=== PATIENT | female | born 1995 | race Hispanic/Latino ===

== ENCOUNTER 2017-09-16 08:47 | Emergency (ER) | payer MEDICAID, OTHER ==
[~2017-09-16 08:47] MED LIST: PANT40TA25 PO; TRAM50TA4 PO
[2017-09-16 09:39] LABS: BASOPHILS % (AUTO) 0.9 % (0.0-5.0); BILIRUBIN,URINE Negative (NEGATIVE); EOSINOPHILS % (AUTO) 10.1 % (0.0-8.0); GLUCOSE, URINE (UA) Negative (NEGATIVE); HEMATOCRIT 41.3 % (36-48); KETONES,URINE 15 mg/dL (NEGATIVE); LEUKOCYTE ESTERASE ,URINE Trace (NEGATIVE); LYMPHOCYTES % (AUTO) 30.3 % (21.0-51.0); MEAN CORPUSCULAR HEMOGLOBIN 29.9 pg (27.0-33.0); MEAN CORPUSCULAR HGB CONC 34.3 g/dL (32.0-36.0); MEAN CORPUSCULAR VOLUME 87.1 fL (80-100); NEUTROPHILS % (AUTO) 52.7 % (40.0-77.0); NITRATE,URINE Negative (NEGATIVE); OCCULT BLOOD,URINE Negative (NEGATIVE); PLATELET COUNT (AUTO) 231 K/uL (130-400); PROTEIN,URINE Negative (NEGATIVE); RED BLOOD CELL COUNT(AUTO) 4.74 MIL/uL (4.00-5.50); RED CELL DISTRIBUTION WIDTH 14.1 % (11.0-15.5); WHITE BLOOD COUNT (AUTO) 5.8 K/uL (4.8-10.8)
[2017-09-16 09:41] LABS: APPEARANCE,URINE CLEAR (CLEAR); COLOR,URINE YELLOW (YELLOW)
[2017-09-16 09:46] LABS: AMPHET/METH SCREEN,URINE NEGATIVE (NEGATIVE); BARBITURATE SCREEN, URINE NEGATIVE (NEGATIVE); BENZODIAZEPINES SCREEN,URINE POSITIVE (NEGATIVE); CANNABINOID SCREEN,URINE POSITIVE (NEGATIVE); COCAINE SCREEN,URINE NEGATIVE (NEGATIVE); OPIATE SCREEN,URINE NEGATIVE (NEGATIVE); PHENCYCLIDINE SCREEN,URINE NEGATIVE (NEGATIVE)
[2017-09-16 09:47] LABS: CREATININE 0.8 mg/dL (0.5-1.5); POTASSIUM 3.7 mmol/L (3.5-5.1)
[2017-09-16] MEDS ORDERED: MORPHINE SULFATE 4 MG/1ML SYG ONE (09:48)
[2017-09-16 09:52] LABS: ALBUMIN 4.1 g/dL (3.5-5.0); BILIRUBIN,TOTAL 1.1 mg/dL (0.2-1.0); TOTAL PROTEIN, SERUM 7.3 g/dL (6.0-8.3)
[2017-09-16 09:58] LABS: BACTERIA,URINE Many /HPF (None Seen); MUCUS,URINE Many LPF (None Seen); RBC,URINE None Seen /HPF (0-1); WBC,URINE 0-1 /HPF (0-1)
== END 2017-09-16 10:33 | disposition home or self-care (01) ==
LOC: EDH 08:47
DX: R10.13 Epigastric pain (principal); G89.29 Other chronic pain; Z90.49 Acquired absence of other specified parts of digestive tract; Z88.6 Allergy status to analgesic agent
CPT/HCPCS: 36415; 76705; 80053; 80305; 81001; 85025; 96374; 99285; J2270

== ENCOUNTER 2018-03-20 15:51 | Emergency (ER) | payer OTHER ==
[2018-03-20 16:25] LABS: BASOPHILS % (AUTO) 0.8 % (0.0-5.0); EOSINOPHILS % (AUTO) 5.2 % (0.0-8.0); HEMATOCRIT 44.6 % (36-48); LYMPHOCYTES % (AUTO) 38.6 % (21.0-51.0); MEAN CORPUSCULAR HEMOGLOBIN 29.4 pg (27.0-33.0); MEAN CORPUSCULAR HGB CONC 32.8 g/dL (32.0-36.0); MEAN CORPUSCULAR VOLUME 89.4 fL (80-100); MONOCYTES % (AUTO) 6.2 % (3.0-13.0); NEUTROPHILS % (AUTO) 49.2 % (40.0-77.0); PLATELET COUNT (AUTO) 258 K/uL (130-400); RED BLOOD CELL COUNT(AUTO) 4.99 MIL/uL (4.00-5.50); RED CELL DISTRIBUTION WIDTH 15.5 % (11.0-15.5); WHITE BLOOD COUNT (AUTO) 5.7 K/uL (4.8-10.8)
[2018-03-20] MEDS ORDERED: ONDANSETRON HCL 4 MG/2 ML VIAL ONE (16:27)
[2018-03-20 16:38] LABS: APPEARANCE,URINE SL CLOUDY (CLEAR); BILIRUBIN,URINE NEGATIVE (NEGATIVE); COLOR,URINE YELLOW (YELLOW); GLUCOSE, URINE (UA) NEGATIVE (NEGATIVE); KETONES,URINE NEGATIVE (NEGATIVE); LEUKOCYTE ESTERASE ,URINE NEGATIVE (NEGATIVE); NITRATE,URINE NEGATIVE (NEGATIVE); OCCULT BLOOD,URINE LARGE (NEGATIVE); PROTEIN,URINE 30 (NEGATIVE); UROBILINOGEN,URINE 0.2 mg/dL (0.2-1.0)
[2018-03-20 16:41] LABS: CREATININE 0.8 mg/dL (0.5-1.5); HCG,QUAL RESULT NEGATIVE (NEGATIVE); POTASSIUM 3.7 mmol/L (3.5-5.1)
[2018-03-20 16:44] LABS: ALBUMIN 4.2 g/dL (3.5-5.0); BILIRUBIN,TOTAL 0.7 mg/dL (0.2-1.0); TOTAL PROTEIN, SERUM 7.5 g/dL (6.0-8.3)
[2018-03-20 16:47] LABS: AMPHET/METH SCREEN,URINE NEGATIVE (NEGATIVE); BARBITURATE SCREEN, URINE NEGATIVE (NEGATIVE); BENZODIAZEPINES SCREEN,URINE POSITIVE (NEGATIVE); CANNABINOID SCREEN,URINE POSITIVE (NEGATIVE); COCAINE SCREEN,URINE NEGATIVE (NEGATIVE); OPIATE SCREEN,URINE POSITIVE (NEGATIVE); PHENCYCLIDINE SCREEN,URINE NEGATIVE (NEGATIVE)
[2018-03-20 16:51] LABS: BACTERIA,URINE Few /HPF (None Seen); WBC,URINE 0-1 /HPF (0-1)
[2018-03-20 16:52] LABS: SQUAMOUS EPITHELIAL CELL,UR Moderate /HPF (0-2)
[2018-03-20] MEDS ORDERED: DICYCLOMINE HCL 20 MG TAB ONE (16:58)
[2018-03-20] MEDS ORDERED: LIDOCAINE HCL 2% VISCOUS 15 ML UDCUP ONE (16:58)
[2018-03-20] MEDS ORDERED: MAG HYDROX/AL HYDROX/SIMETH ES 30 ML SUSP UDCUP ONE (16:58)
== END 2018-03-20 17:44 | disposition home or self-care (01) ==
LOC: EDH 15:51
DX: G89.29 Other chronic pain (principal); R10.13 Epigastric pain; F11.10 Opioid abuse, uncomplicated; Z76.5 Malingerer [conscious simulation]; Z88.6 Allergy status to analgesic agent
CPT/HCPCS: 36415; 80053; 80305; 81001; 81025; 83690; 85025; 96374; 99284; J2405

== ENCOUNTER 2018-05-26 10:26 | Emergency (ER) | payer MEDICAID, OTHER ==
[2018-05-26] MEDS ORDERED: MAG HYDROX/AL HYDROX/SIMETH ES 30 ML SUSP UDCUP ONE ×2 (11:07→17:37)
[2018-05-26] MEDS ORDERED: LIDOCAINE HCL 2% VISCOUS 15 ML UDCUP ONE (17:37)
== END 2018-05-26 11:21 | disposition home or self-care (01) ==
LOC: EDH 10:26
DX: K29.70 Gastritis, unspecified, without bleeding (principal); F41.9 Anxiety disorder, unspecified; G89.29 Other chronic pain; Z90.49 Acquired absence of other specified parts of digestive tract; Z98.890 Other specified postprocedural states

== ENCOUNTER 2018-09-25 19:18 | Emergency (ER) | payer MEDICAID ==
[2018-09-25 20:17] LABS: APPEARANCE,URINE Cloudy (CLEAR); BASOPHILS % (AUTO) 1.4 % (0.0-5.0); BILIRUBIN,URINE Negative (NEGATIVE); COLOR,URINE Yellow (YELLOW); EOSINOPHILS % (AUTO) 6.8 % (0.0-8.0); GLUCOSE, URINE (UA) Negative (NEGATIVE); HEMATOCRIT 39.3 % (36-48); KETONES,URINE Negative (NEGATIVE); LEUKOCYTE ESTERASE ,URINE Negative (NEGATIVE); LYMPHOCYTES % (AUTO) 19.4 % (21.0-51.0); MEAN CORPUSCULAR HEMOGLOBIN 29.7 pg (27.0-33.0); MEAN CORPUSCULAR HGB CONC 33.5 g/dL (32.0-36.0); MEAN CORPUSCULAR VOLUME 88.9 fL (79-99); MONOCYTES % (AUTO) 7.4 % (3.0-13.0); NITRATE,URINE Negative (NEGATIVE); OCCULT BLOOD,URINE Negative (NEGATIVE); PH,URINE 5.5 (5.0-8.0); PLATELET COUNT (AUTO) 288 K/uL (130-400); PROTEIN,URINE Negative (NEGATIVE); RED BLOOD CELL COUNT(AUTO) 4.42 MIL/uL (4.00-5.50); RED CELL DISTRIBUTION WIDTH 13.8 % (11.0-15.5); WHITE BLOOD COUNT (AUTO) 7.9 K/uL (4.8-10.8)
[2018-09-25 20:21] LABS: CREATININE 0.6 mg/dL (0.5-1.5); POTASSIUM 3.7 mmol/L (3.5-5.1)
[2018-09-25] MEDS ORDERED: METOCLOPRAMIDE 10 MG/2 ML VIAL ONE (20:38)
[2018-09-25] MEDS ORDERED: DICYCLOMINE HCL 20 MG TAB ONE (20:38)
[2018-09-25 20:47] LABS: ALBUMIN 3.6 g/dL (3.5-5.0); BILIRUBIN,TOTAL 0.3 mg/dL (0.2-1.0); TOTAL PROTEIN, SERUM 7.4 g/dL (6.0-8.3)
[2018-09-25 20:48] LABS: BACTERIA,URINE Few /HPF (None Seen); RBC,URINE None Seen /HPF (0-1)
== END 2018-09-25 23:36 | disposition home or self-care (01) ==
LOC: EDH 19:18
DX: O21.8 Other vomiting complicating pregnancy (principal); O99.341 Other mental disorders complicating pregnancy, first trimester; F41.9 Anxiety disorder, unspecified; Z3A.01 Less than 8 weeks gestation of pregnancy; Z90.49 Acquired absence of other specified parts of digestive tract
CPT/HCPCS: 36415; 76801; 80053; 81001; 83690; 84702; 85025; 96374; 99285; J2765

== ENCOUNTER 2018-10-20 16:45 | Emergency (ER) | payer MEDICAID ==
[2018-10-20] MEDS ORDERED: ACETAMINOPHEN 325 MG TAB ONE (17:00)
== END 2018-10-20 17:05 | disposition home or self-care (01) ==
LOC: EDH 16:45
DX: O26.891 Other specified pregnancy related conditions, first trimester (principal); G43.109 Migraine with aura, not intractable, without status migrainosus; G44.209 Tension-type headache, unspecified, not intractable; F41.9 Anxiety disorder, unspecified; F11.10 Opioid abuse, uncomplicated; Z90.49 Acquired absence of other specified parts of digestive tract; Z88.6 Allergy status to analgesic agent; Z98.890 Other specified postprocedural states; Z3A.01 Less than 8 weeks gestation of pregnancy
CPT/HCPCS: 99282

== ENCOUNTER 2020-02-14 18:08 | Emergency (ER) | payer MEDICAID, OTHER ==
[2020-02-14] MEDS ORDERED: ONDANSETRON ODT 4 MG TAB ONE (19:37)
[2020-02-14] MEDS ORDERED: CYCLOBENZAPRINE HCL 10 MG TABLET ONE (19:37)
[2020-02-14] MEDS ORDERED: HYDROCODONE/ACETAMINOPHEN 10/325 MG TAB ONE (19:38)
== END 2020-02-14 20:31 | disposition home or self-care (01) ==
LOC: EDH 18:08
DX: M62.838 Other muscle spasm (principal); M54.6 Pain in thoracic spine; F41.9 Anxiety disorder, unspecified; Z90.49 Acquired absence of other specified parts of digestive tract; Z98.890 Other specified postprocedural states; Z72.0 Tobacco use; Z88.6 Allergy status to analgesic agent; V89.2XXA Person injured in unspecified motor-vehicle accident, traffic, initial encounter; Y93.89 Activity, other specified; Y92.488 Other paved roadways as the place of occurrence of the external cause; Y99.8 Other external cause status
CPT/HCPCS: 72125; 72128; 72131; 81025

== ENCOUNTER 2020-03-22 11:14 | Emergency (ER) | payer OTHER ==
[~2020-03-22 11:14] MED LIST changes: -PANT40TA25 PO; +PANT40TA54 PO
[2020-03-22 12:26] LABS: BILIRUBIN,URINE Negative (NEGATIVE); COLOR,URINE Yellow (YELLOW); GLUCOSE, URINE (UA) Negative (NEGATIVE); KETONES,URINE Negative (NEGATIVE); LEUKOCYTE ESTERASE ,URINE Negative (NEGATIVE); NITRATE,URINE Negative (NEGATIVE); OCCULT BLOOD,URINE Negative (NEGATIVE); PROTEIN,URINE Negative (NEGATIVE); UROBILINOGEN,URINE 0.2 mg/dL (0.2-1.0)
[2020-03-22 12:34] LABS: AMPHET/METH SCREEN,URINE NEGATIVE (NEGATIVE); BARBITURATE SCREEN, URINE NEGATIVE (NEGATIVE); BENZODIAZEPINES SCREEN,URINE POSITIVE (NEGATIVE); CANNABINOID SCREEN,URINE NEGATIVE (NEGATIVE); COCAINE SCREEN,URINE POSITIVE (NEGATIVE); OPIATE SCREEN,URINE NEGATIVE (NEGATIVE); PHENCYCLIDINE SCREEN,URINE NEGATIVE (NEGATIVE)
[2020-03-22 12:35] LABS: HCG,QUAL RESULT NEGATIVE (NEGATIVE)
[2020-03-22 12:36] LABS: APPEARANCE,URINE CLEAR (CLEAR)
[2020-03-22 13:15] LABS: BASOPHILS % (AUTO) 0.6 % (0.0-5.0); CARBON DIOXIDE 28 mmol/L (21-32); CHLORIDE 106 mmol/L (101-111); CREATININE 0.7 mg/dL (0.5-1.5); EOSINOPHILS % (AUTO) 3.1 % (0.0-8.0); GLOMERULAR FILTR. RATE CALC 110 mL/min (>60); GLUCOSE,RANDOM 79 mg/dL (70-105); HEMATOCRIT 39.7 % (36-48); LYMPHOCYTES % (AUTO) 30.7 % (21.0-51.0); MEAN CORPUSCULAR VOLUME 87.4 fL (79-99); MONOCYTES % (AUTO) 9.2 % (3.0-13.0); NEUTROPHILS % (AUTO) 56.1 % (40.0-77.0); PLATELET COUNT (AUTO) 310 K/uL (130-400); POTASSIUM 4.5 mmol/L (3.5-5.1); RED BLOOD CELL COUNT(AUTO) 4.54 MIL/uL (4.00-5.50); RED CELL DISTRIBUTION WIDTH 13.6 % (11.0-15.5); SODIUM SERUM 140 mmol/L (136-145); UREA NITROGEN, BLOOD 13 mg/dL (7-18)
[2020-03-22 13:19] LABS: ACETAMINOPHEN < 1 mcg/mL (10-30); CREATINE KINASE, TOTAL 55 U/L (21-232); SALICYLATE < 2.8 mg/dL (2.8-20.0)
[2020-03-22 13:20] LABS: ALCOHOL, BLOOD < 3 mg/dL (0-10)
[2020-03-22] MEDS ORDERED: DiphenhydrAMINE HCL 50 MG/ML VIAL ONE (15:58)
== END 2020-03-22 16:27 | disposition home or self-care (01) ==
LOC: EDH 11:14
DX: F41.9 Anxiety disorder, unspecified (principal); R45.851 Suicidal ideations; F32.9 Major depressive disorder, single episode, unspecified; F11.10 Opioid abuse, uncomplicated; Z88.6 Allergy status to analgesic agent; F13.10 Sedative, hypnotic or anxiolytic abuse, uncomplicated
CPT/HCPCS: 36415; 80048; 80305; 81003; 81025; 82550; 85025; 96361 ×2; 96374; 99283; G0481; J1200

== ENCOUNTER 2022-11-25 17:37 | Emergency (ER) | payer MEDICAID ==
[~2022-11-25] VITALS: Ht 157.5 cm; Wt 54.4 kg
[2022-11-25 17:42] VITALS: BP 116/73
== END 2022-11-25 18:31 | disposition left against medical advice (07) ==
LOC: EDH 17:37
DX: R10.10 Upper abdominal pain, unspecified (principal); R11.2 Nausea with vomiting, unspecified; Z53.21 Procedure and treatment not carried out due to patient leaving prior to being seen by health care provider
CPT/HCPCS: 99281

== ENCOUNTER 2025-03-19 08:20 | Emergency (ER) | payer SELFPAY ==
[~2025-03-19] VITALS: Ht 157.5 cm; Wt 77.1 kg
[2025-03-19 08:23] VITALS: TEMP 97.5
[2025-03-19 08:44] VITALS: PULSE 91; RESP 18
[2025-03-19 08:53] LABS: IMMATURE GRANULOCYTE ABSOLUTE 0.03 K/uL (0-1); NUCLEATED RED BLOOD CELLS 0.0 % (0.0-0.19); PLATELET COUNT (AUTO) 311 K/uL (130-400); RED BLOOD CELL COUNT(AUTO) 4.80 MIL/uL (4.00-5.50); RED CELL DISTRIBUTION WIDTH 14.2 % (11.0-15.5); WHITE BLOOD COUNT (AUTO) 9.8 K/uL (4.8-10.8)
[2025-03-19] MEDS: MAGNESIUM 2GM PREMIX 50ML IV ONE (09:17)
[2025-03-19 09:21] LABS: CREATININE 0.6 mg/dL (0.5-1.0); GLOMERULAR FILTR. RATE CALC 125.0 mL/min (>90); GLUCOSE,RANDOM 100.0 mg/dL (70-105); SODIUM SERUM 139.0 mmol/L (136-145); UREA NITROGEN, BLOOD 9.0 mg/dL (7-18)
--- NOTE | 2025-03-19 09:27 | HMCIMG ---
EXAM: CR Chest, single view CLINICAL HISTORY: Wheezing. Shortness of breath.. COMPARISON: Prior chest radiograph dated January 23, 2015 FINDINGS: The lungs show no infiltrate or other acute findings. No pleural effusion or pneumothorax. The cardiomediastinal silhouette is within normal limits. No acute osseous abnormality. IMPRESSION: No acute cardiopulmonary pathology is evident. Compared to the prior study, there is no significant interval change. /[place]
--- NOTE | 2025-03-19 09:45 | ERN ---
General Chief Complaint: Shortness of Breath Stated Complaint: SOB Time Seen by MD: 08:40 Source: patient History of Present Illness Initial Comments 29-year-old female history of asthma who has not had an asthma exacerbation in the past few years presents to emergency room with shortness a breath. Prior to arrival patient states that she was having trouble breathing, wheezing, NSAID to come to emergency room. She does not have any rescue inhaler medications at this time. No fever no cough no one home w/ similar symptoms Allergies: Coded Allergies: No Known Drug Allergies (Verified Allergy, Unknown, 01/26/15) pt with allergies to demerol and morphine. meperidine (Unverified Allergy, Unknown, 01/26/15) morphine (Unverified Allergy, Unknown, 01/26/15) Home Meds Reported Medications Pantoprazole Sodium (Pantoprazole Sodium) 40 Mg Tablet.dr, 40 MG PO BID, #60 TAB TAKE FOR 8 WEEKS 01/27/15 Tramadol Hcl (Tramadol HCl) 50 Mg Tablet, 1 TAB PO Q6H PRN for PAIN, #10 01/27/15 Past Medical History Past Medical History: Anxiety, Asthma, Depression Past Surgical History: None Respiratory: (+) short of breath, (+) wheezing Review of Systems: was completed, & the rest were negative. Physical Exam General Appearance: (+) no apparent distress Orientation: (+) alert Ear, Nose, Throat: (+) hearing grossly normal, (+) moist mucous membraine, (+) normal pharynx Neck: (+) normal inspection, (+) supple Respiratory: (+) decreased breath sounds, (+) abnormal breath sound, (+) wheezing Respiratory Comment Unable to speak in full sentences. No retractions. Wheezes throughout. Decreased breath sounds Results Laboratory and Microbiology Lab and Micro Result Laboratory Tests Test 03/19/25 08:40 White Blood Count 9.8 K/uL (4.8-10.8) Red Blood Count 4.80 MIL/uL (4.00-5.50) Hemoglobin 14.2 g/dL (12.0-16.0) Hematocrit 43.4 % (36-48) Mean Corpuscular Volume 90.4 fL (79-99) Mean Corpuscular Hemoglobin 29.6 pg (27.0-33.0) Mean Corpuscular Hemoglobin Concent 32.7 g/dL (32.0-36.0) Red Cell Distribution Width 14.2 % (11.0-15.5) Platelet Count 311 K/uL (130-400) Mean Platelet Volume 9.3 fL (7.5-10.5) Immature Granulocyte % (Auto) 0.3 % (0-1) Neutrophils (%) (Auto) 65.2 % (40.0-77.0) Lymphocytes (%) (Auto) 18.7 % (21.0-51.0) L Monocytes (%) (Auto) 5.1 % (3.0-13.0) Eosinophils (%) (Auto) 9.8 % (0.0-8.0) H Basophils (%) (Auto) 0.9 % (0.0-5.0) Neutrophils # (Auto) 6.4 K/uL (1.8-7.7) Lymphocytes # (Auto) 1.8 K/uL (1.0-4.8) Monocytes # (Auto) 0.5 K/uL (0.1-1.0) Eosinophils # (Auto) 0.96 K/uL (0.00-0.70) H Basophils # (Auto) 0.09 K/uL (0.00-0.20) Absolute Immature Granulocyte (auto 0.03 K/uL (0-1) Nucleated Red Blood Cells 0.0 % (0.0-0.19) Sodium Level 139 mmol/L (136-145) Potassium Level 4.5 mmol/L (3.5-5.1) Chloride Level 106 mmol/L (101-111) Carbon Dioxide Level 22 mmol/L (21-32) Blood Urea Nitrogen 9 mg/dL (7-18) Creatinine 0.6 mg/dL (0.5-1.0) Glomerular Filtration Rate Calc 125 mL/min (>90) Random Glucose 100 mg/dL (70-105) Total Calcium 8.0 mg/dL (8.5-10.1) L EKG/XRAY/US/CT/MRI X-RAY Comment X-ray negative MDM Status post DuoNeb x3, magnesium, steroids, patient much better appearing. Still has mild wheezes in the right compared to left. Chest x-ray negative. We will prescribe albuterol and short dose of steroids. She is advised to follow up with the PCP (tropical). She still has mild wheezes on the right compared to left however she is stable for discharge home. She has much more aeration and is able to speak in full sentences. I will discharge her home with a short dose of steroids as well as an albuterol inhaler to take q.4h PRN. Advised on concerning signs and symptoms for which to return to emergency room. All questions answered at this time. ED Course Orders Procedure Category Date Status Time Magnesium 2gm Premix PHA 03/19/25 Complete 50ml (Magnesium 2gm 08:30 Methylprednisolone PHA 03/19/25 Complete Succ 125mg (Solu-Medr 08:30 Chest 1vw RAD 03/19/25 Resulted 08:29 Ipratropium/Albuterol PHA 03/19/25 Complete Neb (Duoneb) 08:30 Saline Lock Iv CPOE 03/19/25 Transmitted 08:29 Cbc With Differential LAB 03/19/25 Complete 08:40 Basic Metabolic Panel LAB 03/19/25 Complete 08:40 Hydroxyzine 10mg Tab PHA 03/19/25 Complete (Atarax 10mg Tab) 10:00 Ipratropium/Albuterol PHA 03/19/25 Complete Neb (Duoneb) 10:00 Ipratropium/Albuterol PHA 03/19/25 Complete Neb (Duoneb) 11:00 Current Medications Medications (Trade) Dose Ordered Sig/Loulou Route PRN Reason Start Time Stop Time Status Last Admin Dose Admin Albuterol (DUOneb) 1 UDVIAL ONCE ONCE IH 03/19/25 08:30 03/19/25 08:36 DC 03/19/25 08:44 Albuterol (DUOneb) 1 UDVIAL ONCE ONCE IH 03/19/25 10:00 03/19/25 10:01 DC 03/19/25 09:48 Albuterol (DUOneb) 1 UDVIAL ONCE ONCE IH 03/19/25 11:00 03/19/25 11:01 DC 03/19/25 11:04 Hydroxyzine HCl (ATArax 10MG TAB) 10 mg ONCE ONCE PO 03/19/25 10:00 03/19/25 10:01 DC 03/19/25 10:30 Magnesium Sulfate (Magnesium 2gm Premix 50ml) 2 g ONCE ONCE IV 03/19/25 08:30 03/19/25 08:37 DC 03/19/25 09:17 Methylprednisolone Sodium Succinate (Solu-medROL 125MG) 125 mg ONCE ONCE IVP 03/19/25 08:30 03/19/25 08:36 DC 03/19/25 09:13 Vital Signs Date Time Temp Pulse Resp B/P (MAP) Pulse Ox O2 Delivery O2 Flow Rate FiO2 03/19/25 11:05 97 18 03/19/25 10:15 84 20 115/81 99 Room Air* 0 21 03/19/25 09:49 93 18 03/19/25 08:44 91 18 03/19/25 08:23 97.5 95 20 125/81 95 Room Air* 0 21 03/19/25 08:20 97.5 95 20 125/81 95 Room Air 0 Patient restricted with the 1st DuoNeb. Better aeration. Still with wheezes on the right side compared to left. We will order an 2nd set of DuoNebs DX & DISP Disposition: Discharge Departure Impression: Primary Impression: Asthma exacerbation Condition: Stable Scripts Albuterol Sulfate (Ventolin Hfa) 90 Mcg Hfa.aer.ad 2 PUFF IH Q4HPRN PRN for wheezing for 30 Days, #18 GM 0 Refills Prov: SHERLY SANTIAGO MD 03/19/25 Prednisone (Prednisone) 10 Mg Tab.ds.pk 20 MG PO DAILY for 5 Days, #10 TAB 0 Refills Prov: SHERLY SANTIAGO MD 03/19/25 Referrals: SELF,REFERRAL (PCP) SHERLY SANTIAGO MD Mar 19, 2025 09:45
[2025-03-19 09:49] VITALS: PULSE 93; RESP 18
[2025-03-19 11:05] VITALS: PULSE 97; RESP 18
[2025-03-19] MEDS ORDERED: ALBU18HF7 IH (11:33)
[2025-03-19] MEDS ORDERED: PRED10TA23 PO (11:33)
[2025-03-19 11:41] VITALS: BP 124/71; PULSE 78; RESP 20; O2SAT 99
== END 2025-03-19 12:28 | disposition home or self-care (01) ==
LOC: EDH 08:20
DX: J45.901 Unspecified asthma with (acute) exacerbation (principal); F41.9 Anxiety disorder, unspecified; Z79.899 Other long term (current) drug therapy; Z88.5 Allergy status to narcotic agent
CPT/HCPCS: 99285; 96365; 71045; 96366; 96375; 80048; 85025; 36415; 94640; J2919; J3475

== ENCOUNTER 2025-04-01 14:20 | Emergency (ER) | payer SELFPAY ==
[~2025-04-01] VITALS: Ht 157.5 cm; Wt 81.6 kg
[~2025-04-01 14:20] MED LIST changes: +ALBU18HF7 IH; +PRED10TA23 PO
[2025-04-01 14:53] LABS: IMMATURE GRANULOCYTE ABSOLUTE 0.06 K/uL (0-1); NUCLEATED RED BLOOD CELLS 0.0 % (0.0-0.19); PLATELET COUNT (AUTO) 313 K/uL (130-400); RED BLOOD CELL COUNT(AUTO) 4.22 MIL/uL (4.00-5.50); RED CELL DISTRIBUTION WIDTH 14.7 % (11.0-15.5); WHITE BLOOD COUNT (AUTO) 11.6 K/uL (4.8-10.8)
[2025-04-01 15:00] VITALS: TEMP 98.2
[2025-04-01] MEDS ORDERED: MAGNESIUM 2GM PREMIX 50ML 50 ML IV SCH (15:00)
[2025-04-01 15:03] VITALS: PULSE 110; RESP 18
[2025-04-01 15:07] LABS: CREATININE 0.8 mg/dL (0.5-1.0); GLOMERULAR FILTR. RATE CALC 103.0 mL/min (>90); GLUCOSE,RANDOM 126.0 mg/dL (70-105); SODIUM SERUM 139.0 mmol/L (136-145); UREA NITROGEN, BLOOD 11.0 mg/dL (7-18)
--- NOTE | 2025-04-01 16:29 | HMCIMG ---
CHEST 1VW REASON: r/o pneumonia COMPARISON: Prior study from 03/19/2025 is available. FINDINGS: Single view of the chest was obtained. Lungs are clear. Heart size is normal. There is no pulmonary vascular congestion. Mediastinum and bony thorax appear unremarkable. The study is unchanged from prior study. IMPRESSION: 1. Normal single view chest x-ray.
[2025-04-01] MEDS ORDERED: AZIT250T9 PO (16:51)
[2025-04-01] MEDS ORDERED: METH4TAB3 PO (16:51)
--- NOTE | 2025-04-01 16:52 | ERN ---
General Chief Complaint: Adult-Asthma Stated Complaint: ASTHMA ATTACK Time Seen by MD: 14:38 Time Seen by Midlevel: 14:38 Source: patient History of Present Illness Initial Comments 29 year old female with a past medical history of asthma presenting to the emergency department for evaluation of shortness of breath. Patient has been using her rescue inhaler with little to no relief. Allergies: Coded Allergies: No Known Drug Allergies (Verified Allergy, Unknown, 01/26/15) pt with allergies to demerol and morphine. meperidine (Unverified Allergy, Unknown, 01/26/15) morphine (Unverified Allergy, Unknown, 01/26/15) Home Meds Active Scripts Azithromycin (Azithromycin) 250 Mg Tablet, 1 TAB PO AD for 5 Days, #6 TAB 0 Refills 2 the first day followed by 1 for days 2-5 Prov:FELIPE URIBE 04/01/25 Methylprednisolone (Medrol) 4 Mg Tab.ds.pk, 1 TAB PO AD for 6 Days, #21 TAB 0 Refills 6 on day 1 then reduce by one tablet daily until gone Prov:FELIPE URIBE 04/01/25 Albuterol Sulfate (Ventolin Hfa) 90 Mcg Hfa.aer.ad, 2 PUFF IH Q4HPRN PRN for wheezing for 30 Days, #18 GM 0 Refills Prov:SHERLY SANTIAGO MD 03/19/25 Prednisone (Prednisone) 10 Mg Tab.ds.pk, 20 MG PO DAILY for 5 Days, #10 TAB 0 Refills Prov:SHERLY SANTIAGO MD 03/19/25 Reported Medications Pantoprazole Sodium (Pantoprazole Sodium) 40 Mg Tablet.dr, 40 MG PO BID, #60 TAB TAKE FOR 8 WEEKS 01/27/15 Tramadol Hcl (Tramadol HCl) 50 Mg Tablet, 1 TAB PO Q6H PRN for PAIN, #10 01/27/15 Past Medical History Past Medical History: Anxiety, Asthma, Depression Past Surgical History: None Female( History) LMP: Mar 16, 2025 ROS Dictation CONSTITUTIONAL: Negative except for HPI HEAD/FACE: Negative except for HPI EENT: Negative except for HPI RESPIRATORY: Negative except for HPI GASTROINTESTINAL/ABDOMINAL: Negative except for HPI GENITOURINARY: Negative except for HPI MUSCULOSKELETAL: Negative except for HPI INTEGUMENTARY: Negative except for HPI NEUROLOGICAL/PSYCH: Negative except for HPI HEMATOLOGIC/LYMPHATIC: Negative except for HPI All Systems Negative, Except as noted above. 13 point review of systems assessed and all negative except for above. Physical Exam Physical Exam Dictation Vital Signs reviewed General Appearance: Alert, oriented x 3, no acute distress, well developed, nourished. Head and Face: non-traumatic. Eyes: PERRL, pink conjunctivas, eyelid no trauma, anterior chamber with arcus senilis. Ears: Pinnas intact and no signs of trauma or erythema ear canals clear and no discharge TM no erythema Nose: No discharge, no bleeding. Oropharynx: Mouth normal, tongue pink, pharynx clear,no erythema, tonsils no exudates, no abscesses noted, mucous membrane moist Neck: Supple, non-tender, no thyromegaly, no masses, no JVD, no bruits Breast:Deferred Chest:No tenderness, no crepitus, no paradoxical movement, no retractions Lungs:Clear, scattered wheezing to bilateral lung tran, no rhonchi, no stridor, good breath sounds bilaterally Heart: Regular rate, regular rhythm, no murmur, no gallops Vascular: no peripheral edema, Abdomen: Soft, positive bowel sounds, nondistended, no guarding, nontender, no rebound, no masses no hepatomegaly, no splenomegaly, no Dooley's sign, no hernias. Rectal: Deferred Genital: Deferred Neurological: Normal speech, motor function intact, sensory function intact Musculoskeletal: Neck nontender, full range of motion, back nontender, full range of motion, Extremities: nontender, full range of motion Skin: Color pink, dry, no turgor, no rash, no lacerations, no abrasions, no contusions. Lymphatic: Deferred Results Laboratory and Microbiology Lab and Micro Result Laboratory Tests Test 04/01/25 14:45 White Blood Count 11.6 K/uL (4.8-10.8) H Red Blood Count 4.22 MIL/uL (4.00-5.50) Hemoglobin 12.7 g/dL (12.0-16.0) Hematocrit 38.1 % (36-48) Mean Corpuscular Volume 90.3 fL (79-99) Mean Corpuscular Hemoglobin 30.1 pg (27.0-33.0) Mean Corpuscular Hemoglobin Concent 33.3 g/dL (32.0-36.0) Red Cell Distribution Width 14.7 % (11.0-15.5) Platelet Count 313 K/uL (130-400) Mean Platelet Volume 9.3 fL (7.5-10.5) Immature Granulocyte % (Auto) 0.5 % (0-1) Neutrophils (%) (Auto) 92.4 % (40.0-77.0) H Lymphocytes (%) (Auto) 5.5 % (21.0-51.0) L Monocytes (%) (Auto) 1.4 % (3.0-13.0) L Eosinophils (%) (Auto) 0.1 % (0.0-8.0) Basophils (%) (Auto) 0.1 % (0.0-5.0) Neutrophils # (Auto) 10.8 K/uL (1.8-7.7) H Lymphocytes # (Auto) 0.6 K/uL (1.0-4.8) L Monocytes # (Auto) 0.2 K/uL (0.1-1.0) Eosinophils # (Auto) 0.01 K/uL (0.00-0.70) Basophils # (Auto) 0.01 K/uL (0.00-0.20) Absolute Immature Granulocyte (auto 0.06 K/uL (0-1) Nucleated Red Blood Cells 0.0 % (0.0-0.19) White Cell Morphology Comment See comments Sodium Level 139 mmol/L (136-145) Potassium Level 3.9 mmol/L (3.5-5.1) Chloride Level 104 mmol/L (101-111) Carbon Dioxide Level 20 mmol/L (21-32) L Blood Urea Nitrogen 11 mg/dL (7-18) Creatinine 0.8 mg/dL (0.5-1.0) Glomerular Filtration Rate Calc 103 mL/min (>90) Random Glucose 126 mg/dL (70-105) H Total Calcium 8.6 mg/dL (8.5-10.1) Labs Reviewed?: Yes MDM MDM: Differential diagnosis: Asthma exacerbation, pneumonia, pleural effusion There are no social concerns with this patient. Prescription drug management Prescriptions will include: Medrol pack and azithromycin Medical management and examination interpretation discussions were had by me with other qualified healthcare professionals as indicated for the patient's care. ED Course Orders Procedure Category Date Status Time Cbc With Differential LAB 04/01/25 Complete 14:38 Basic Metabolic Panel LAB 04/01/25 Complete 14:38 Chest 1vw RAD 04/01/25 Resulted 14:38 Ipratropium/Albuterol PHA 04/01/25 Complete Neb (Duoneb) 15:00 Methylprednisolone PHA 04/01/25 Complete Succ 125mg (Solu-Medr 15:00 Magnesium 2gm Premix PHA 04/01/25 Complete 50ml (Magnesium 2gm 15:00 Ipratropium/Albuterol PHA 04/01/25 Complete Neb (Duoneb) 17:00 Vital Signs Date Time Temp Pulse Resp B/P (MAP) Pulse Ox O2 Delivery O2 Flow Rate FiO2 04/01/25 17:32 89 20 113/73 97 Room Air* 0 21 04/01/25 17:00 88 18 04/01/25 15:03 110 18 04/01/25 15:00 98.2 109 20 120/75 97 Room Air* 0 21 04/01/25 14:22 99.0 118 20 110/80 92 [place] [address] IMAGING REPORT Signed PATIENT: ZAHIDA GAVIRIA MR#: [id number] : 1995 SEX: F AGE: 29 LOCATION: [facility] ORDER 38 STATUS: [facility] ER REPORT#: [id number] SERVICE REASON: r/o pneumonia ORDERING PHYSICIAN: FELIPE URIBE PAC PROCEDURE: CXR1VW - CHEST 1VW CHEST 1VW REASON: r/o pneumonia COMPARISON: Prior study from 03/19/2025 is available. FINDINGS: Single view of the chest was obtained. Lungs are clear. Heart size is normal. There is no pulmonary vascular congestion. Mediastinum and bony thorax appear unremarkable. The study is unchanged from prior study. IMPRESSION: 1. Normal single view chest x-ray. DICTATED BY: PERLA HALL MD DATE: 04/01/251625 ELECTRONICALLY SIGNED BY: PERLA HALL MD DATE: 04/01/251628 DX & DISP Disposition: Discharge Departure Impression: Primary Impression: Asthma exacerbation Condition: Stable Scripts Azithromycin (Azithromycin) 250 Mg Tablet 1 TAB PO AD for 5 Days, #6 TAB 0 Refills 2 the first day followed by 1 for days 2-5 Prov: FELIPE URIBE 04/01/25 Methylprednisolone (Medrol) 4 Mg Tab.ds.pk 1 TAB PO AD for 6 Days, #21 TAB 0 Refills 6 on day 1 then reduce by one tablet daily until gone Prov: FELIPE URIBE 04/01/25 Referrals: SELF,REFERRAL (PCP) I have reviewed the case, and I agree with, Diagnosis and Plan I performed the substantive portion of the visit. I have reviewed and personally made and approve the management plan that is documented in the note by myself or the DUNCAN. I acknowledge for responsibility for the patient's management plan. FELIPE URIBE Apr 01, 2025 16:52
[2025-04-01 17:00] VITALS: PULSE 88; RESP 18
[2025-04-01 17:32] VITALS: BP 113/73; PULSE 89; RESP 20; O2SAT 97
== END 2025-04-01 17:45 | disposition home or self-care (01) ==
LOC: EDH 14:20
DX: J45.901 Unspecified asthma with (acute) exacerbation (principal); Z79.52 Long term (current) use of systemic steroids; Z79.899 Other long term (current) drug therapy; Z88.5 Allergy status to narcotic agent
CPT/HCPCS: 99284; 96374; 71045; 80048; 85025; 36415; 94640; J2919; J3475